=== PATIENT | female | born 1985 | race Caucasian/White ===

== ENCOUNTER 2019-03-05 06:24 | Day surgery (SDC) | payer BC, OTHER ==
[~2019-03-05] VITALS: Ht 165.1 cm; Wt 87.1 kg
[~2019-03-05 06:24] MED LIST: PREN1TAB27 PO; RANI-376 PO
[2019-03-05] MEDS ORDERED: MORPHINE SULFATE 2 MG/ML VIAL. IV PRN (07:00)
[2019-03-05] MEDS ORDERED: IV RINGERS,LACTATED 1000ML 1,000 ML IV SCH (07:00)
[2019-03-05] MEDS ORDERED: ONDANSETRON PF 4 MG/2 ML VIAL. IV PRN (07:00)
[2019-03-05] MEDS ORDERED: HYDROmorphone 2 MG/ML VIAL IV PRN (07:00)
[2019-03-05] MEDS ORDERED: LIDOCAINE 1% PF 2 ML VIAL. ID PRN (07:00)
[2019-03-05] MEDS ORDERED: PROCHLORPERAZINE 10 MG/2 ML VIAL. IV PRN (07:00)
[2019-03-05] MEDS ORDERED: fentaNYL PF VIAL 100 MCG/2 ML VIAL IV PRN ×2 (07:00)
[2019-03-05] MEDS ORDERED: IBUPROFEN 400 MG TABLET. PO ONE (07:45)
[2019-03-05] MEDS ORDERED: ACETAMINOPHEN 500 MG TABLET PO ONE ×2 (07:45→07:50)
[2019-03-05 07:46] LABS: U PREG PATIENT NEGATIVE (NEG)
[2019-03-05] MEDS ORDERED: IBUPROFEN 200 MG TABLET. PO ONE (07:50)
[2019-03-05] MEDS ORDERED: ceFAZolin 2GM PREMIX 2 GM/50 ML BAG IV ONE (08:00)
[2019-03-05] MEDS ORDERED: PROPOFOL 20 ML IV ONE (08:05)
[2019-03-05] MEDS ORDERED: DEXAMETHASONE SOD PHOS 20 MG/5 ML VIAL. ONE (08:05)
[2019-03-05] MEDS ORDERED: LIDOCAINE 2% PF 5 ML VIAL. ONE (08:05)
[2019-03-05] MEDS ORDERED: ONDANSETRON PF 4 MG/2 ML VIAL. ONE (08:05)
[2019-03-05] MEDS ORDERED: SEVOFLURANE 31 TO 60 MINUTES. IH ONE (08:05)
--- NOTE | 2019-03-05 09:30 | PDOC ---
BRIEF OPERATIVE NOTE Date: Mar 05, 2019 Pre-Op Diagnosis Menorrhagia Post-Op Diagnosis SAme Procedure Performed HTA Endometrial ablation Surgeon Dr. Hurtado Anesthesia Type: General Blood Loss 5 ml Specimens Obtained none Findings homogenous endometrial lining, IUD removed Complications none Operative Note see dictation NICOLE HURTADO Jr, MD Mar 05, 2019 09:30
--- NOTE | 2019-03-05 09:31 | DISCH ---
DISCHARGE INSTRUCTIONS Condition on Discharge Condition on Discharge: Stable Activity After Discharge Activity Instructions for Disc: Activity as tolerated Bathing Instructions: Shower-keep dressing dry Lifting Instructions after Dis: No heavy lifting, No pulling or pushing Driving Instructions after Dis: Do not drive today Diet after Discharge Diet after Discharge: Regular Contacting the DRMarycruz after DC Call your doctor for: Concerns you may have Follow-Up Follow up with: Dr. Hurtado in 1 week. NICOLE HURTADO Jr, MD Mar 05, 2019 09:31
--- NOTE | 2019-03-05 09:44 | OP ---
DATE OF SURGERY: PREOPERATIVE DIAGNOSIS: Menorrhagia. POSTOPERATIVE DIAGNOSIS: Menorrhagia. PROCEDURE: HTA endometrial ablation. SURGEON: Gustavo Hurtado MD ANESTHESIA: LMA. ESTIMATED BLOOD LOSS: 5 mL. COMPLICATIONS: None. FINDINGS: Homogenous endometrial lining. ID removed. SUMMARY: A 33-year-old with long history of menorrhagia despite IUD and OCPs usage. She was counseled on the risks, benefits and expectations of endometrial ablation and desired to proceed. DESCRIPTION OF PROCEDURE: The patient was taken to surgery suite and placed in dorsal lithotomy position, was prepped with Betadine solution and draped in a sterile fashion. After adequate anesthesia, weighted speculum was placed vaginally. Anterior lip of the cervix was grasped with single tooth tenaculum. The cervix was then dilated with Hegar dilators up to size 5. The HTA hysteroscope was then placed. The ablation treatment completed a 10-minute cycle at 90 degrees Celsius. The endometrial lining then appeared desiccated and blanched in a homogenous manner. A hysteroscope was removed. Single tooth tenaculum, weighted speculum removed. The patient tolerated the procedure well and was sent to recovery room in stable condition. Sponge and needle count correct x 3. GUSTAVO HURTADO MD DR: SALENA/renny JOB#: [id number] / [id number]
[2019-03-05] MEDS ORDERED: fentaNYL PF VIAL 100 MCG/2 ML VIAL ONE (09:47)
[2019-03-05] MEDS ORDERED: PROCHLORPERAZINE 10 MG/2 ML VIAL. ONE (09:57)
[2019-03-05 10:45] VITALS: BP 136/74
== END 2019-03-05 10:45 | disposition home or self-care (01) ==
LOC: SURG 06:24
PROVIDERS: ATTEND Obstetrics & Gynecology
DX: N92.0 Excessive and frequent menstruation with regular cycle (principal); Z88.2 Allergy status to sulfonamides; Z79.899 Other long term (current) drug therapy; Z72.89 Other problems related to lifestyle
CPT/HCPCS: 58563; 81025; A7015; J0696; J0780; J1100; J2001; J2405; J2704; J3010